=== PATIENT | female | born 1990 | race African-American/Black ===

== ENCOUNTER 2019-09-03 16:48 | Emergency (ER) | payer SELFPAY ==
[2019-09-03 17:02] VITALS: BP 128/69; PULSE 92; RESP 20; TEMP 37.3; O2SAT 100
--- NOTE | 2019-09-03 17:39 | ED.ABDPAIN ---
HPI - Abdominal Pain General Chief Complaint: Abdominal Pain Stated Complaint: Abd Pain/Nausea/Vomiting/diarrhea Time Seen by Provider: 09/03/19 17:40 Source: patient Mode of arrival: ambulatory Limitations: no limitations History of Present Illness HPI narrative: Brenda Miguel is a 29 yo female with no PMH who comes to express care with 4 out of 10 abdominal pain that has lasted the last 2 days. Patient is 1 month past the due date for repeat Deprol. Is sexually active, denies tenderness on exam but states she has pressure on the right side when she tries to lay down. States has no urinary tract infection symptoms Related Data Home Medications Medication Instructions Recorded Confirmed albuterol sulfate [Ventolin HFA] INHALATION 09/03/19 Allergies Allergy/AdvReac Type Severity Reaction Status Date / Time sulfamethoxazole Allergy Hives Verified 09/03/19 17:14 [From Bactrim] trimethoprim [From Bactrim] Allergy Hives Verified 09/03/19 17:14 Review of Systems Review of Systems: Narrative: CONSTITUTIONAL: Denies fever, chills, sweats. EYES: Denies visual changes, redness, discharge. ENT: Denies rhinorrhea, congestion, sore throat, otalgia. CARDIOVASCULAR: Denies chest pain, palpitations, edema. RESPIRATORY: Denies dyspnea, wheezing, cough GASTROINTESTINAL: Denies abdominal pain, nausea, vomiting, diarrhea. Right lower abdominal pain, 4/10 GENITOURINARY: Denies dysuria, hematuria, abnormal discharge SKIN: Denies rash or itching. NEUROLOGIC: Denies numbness, or focal weakness. PSYCHIATRIC: Denies anxiety or depression. PMFSH Family History Family History (Updated 09/03/19 @ 17:43 by Smita Chang CNP) Other No active medical problems Social History Social History Smoking status: Never smoker Alcohol intake: never Gender identity (if verbalized by the patient): Female Comments At time of signature, I agree with nursing past medical, surgical, social and family history. There is no relevant family history pertinent to the presenting complaint. Exam Narrative: Exam Narrative: GENERAL: This is a well-nourished, well-developed patient, in mild distress. HEAD: normocephalic, atraumatic. EYES: Sclera clear/white. Vision is grossly intact. EARS: External ears normal. Hearing grossly intact. NOSE: External nose normal without nasal discharge, nares without redness, no rhinorrhea. THROAT: Mucous membranes moist, NECK: Neck supple, non-tender CARDIOVASCULAR: Regular rate and rhythm without murmurs, gallops, or rubs. RESPIRATORY: Clear to auscultation. Breath sounds equal bilaterally. No wheezes, rales, or rhonchi. GASTROINTESTINAL: Abdomen soft, non-tender,byt complains of pressure when laying down SKIN: warm, intact with no suspicious lesions or rash, good texture and turgor. NEURO: awake, alert, and oriented to person, place and time. There were no obvious focal neurologic abnormalities. Steady gait EXTREMITIES: Normal range of motion. BACK: Nontender without deformity Course Course Emergency Course: UA done- neg except for blood test done neg Pt to follow up at pcp or ER if abd pain worsens Vital Signs Vital signs: Vital Signs Temperature 99.1 F 09/03/19 17:02 Pulse Rate 92 09/03/19 17:02 Respiratory Rate 20 09/03/19 17:02 Blood Pressure 128/69 09/03/19 17:02 Pulse Oximetry 100 09/03/19 17:02 Temperature 99.1 F 09/03/19 17:02 Pulse Rate 92 09/03/19 17:02 Respiratory Rate 20 09/03/19 17:02 Blood Pressure 128/69 09/03/19 17:02 Pulse Oximetry 100 09/03/19 17:02 MDM - Abdominal Pain Differential Diagnosis Differential diagnosis: Likely abdominal pain, acute appendicitis and other Lab Data Labs: UCG Bedside Result Negative Reference Range: Negative Urine Glucose 1+ Reference Range: Negative Urine Bilirubin
== END 2019-09-03 18:16 | disposition home or self-care (01) ==
PROVIDERS: Emergency Provider Nurse Practitioner
DX: R10.31 Right lower quadrant pain (principal); J45.909 Unspecified asthma, uncomplicated
CPT/HCPCS: 81003; 81025; 87077; 87086; 87088; 99203; G0463